=== PATIENT | female | born 1990 | race Caucasian/White ===

== ENCOUNTER 2023-01-16 18:42 | Emergency (ER) | payer OTHER, BC ==
[~2023-01-16] VITALS: Ht 152.4 cm; Wt 72.6 kg
[2023-01-16 19:01] VITALS: BP 125/76
[2023-01-16] MEDS ORDERED: IBUPROFEN 600 MG TAB PO ONE (19:20)
--- NOTE | 2023-01-16 19:42 | NUR ---
Carlos spencer in [facility] - 01/16/23 at 1943 by AIDAP[facility] PT IN XRAY
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
[2023-01-16] MEDS ORDERED: NAPR-54 PO (20:37)
--- NOTE | 2023-01-16 20:45 | NUR ---
Patient discharged with v/s stable. Written and verbal after care instructions given and explained. Patient verbalized understanding. Ambulatory with steady gait. All questions addressed prior to discharge. Advised to follow up with PMD.
== END 2023-01-16 20:45 | disposition home or self-care (01) ==
LOC: MED 18:42
DX: S39.012A Strain of muscle, fascia and tendon of lower back, initial encounter (principal); Z79.1 Long term (current) use of non-steroidal anti-inflammatories (NSAID); V89.2XXA Person injured in unspecified motor-vehicle accident, traffic, initial encounter; Y93.89 Activity, other specified; Y92.410 Unspecified street and highway as the place of occurrence of the external cause; Y99.8 Other external cause status
CPT/HCPCS: 72110; 81025; 99283